=== PATIENT | female | born 1950 | race American Indian/Alaskan Native ===

== ENCOUNTER 2017-11-11 18:16 | Emergency (ER) | payer MEDICARE, OTHER ==
[2017-11-11] MEDS ORDERED: Sodium Chloride 0.9% 10 ML Syringe FLUSH PRN (18:38)
[2017-11-11] MEDS ORDERED: Nitroglycerin 0.4 MG Tab.SL SL PRN (18:39)
[2017-11-11] MEDS ORDERED: Nitroglycerin 0.4 MG Tab.SL SL ONE (19:03)
[2017-11-11 19:04] VITALS: BP 163/70
[2017-11-11] MEDS ORDERED: Sodium Chloride 0.9% 1,000 ML IV ONE (19:05)
--- NOTE | 2017-11-11 19:18 | EDM.PDOC ---
ED HPI GENERAL MEDICAL PROBLEM - General Chief Complaint: Cardiovascular Problem Stated Complaint: [id number] PAIN IN LT ARM AND JAW Time Seen by Provider: 11/11/17 19:00 Source of Information: Reports: Patient History Limitations: Reports: No Limitations - History of Present Illness INITIAL COMMENTS - FREE TEXT/NARRATIVE: ED with c/o left arm and jaw pain since last rosales. Never completely goes away but improves with rest. Hx bypass in 1999, then 2 stents few years later. Diabetic. O2 at hs, Hx carotid surgery on left. Pain 8/10 on arrival decreased to 4/10 with one nitro, 3/10 with 2nd. Notes sweaty when pain worsens. No nausea. No pain with prior cardiac events. Hx low Hgb, usually in 9 range. Left Face Pain Score (Numeric/FACES): 8 - Related Data Allergies Allergy/AdvReac Type Severity Reaction Status Date / Time aspirin Allergy Stomach Verified 01/07/15 23:29 Upset Home Meds: Home Meds . [Unable to Verify Home Med List] 01/02/15 [History] Past Medical History Cardiovascular History: Reports: Bypass, High Cholesterol, Hypertension, [place] Other Cardiovascular History: 1999; 2 stents and 2 balloon Respiratory History: Reports: Sleep Apnea Other Respiratory History: breathes too shallow at night, is on a CPAP Gastrointestinal History: Reports: GERD Other OB/BYN History: benign mass on left ovary Endocrine/Metabolic History: Reports: Diabetes, Type II - Past Surgical History Other HEENT Surgeries/Procedures: shunt to right eye Social & Family History - Tobacco Use Smoking Status *Q: Former Smoker Used Tobacco, but Quit: No - Caffeine Use Caffeine Use: Reports: Coffee, Soda, Tea - Recreational Drug Use Recreational Drug Use: No ED ROS GENERAL - Review of Systems Review Of Systems: See Below Constitutional: Reports: No Symptoms HEENT: Reports: No Symptoms Respiratory: Reports: No Symptoms Cardiovascular: Reports: Dyspnea on Exertion, Other (left arm and jaw pain, worse with exertion, improves with rest but does not completely resolve). Denies: Chest Pain GI/Abdominal: Reports: No Symptoms Musculoskeletal: Reports: No Symptoms Skin: Reports: No Symptoms Neurological: Reports: No Symptoms Psychiatric: Reports: No Symptoms ED EXAM, GENERAL - Physical Exam Exam: See Below Exam Limited By: No Limitations General Appearance: Alert, No Apparent Distress Eye Exam: Bilateral Eye: EOMI Ears: Normal External Exam Nose: Normal Inspection Throat/Mouth: Normal Inspection Head: Atraumatic Neck: Normal Inspection Respiratory/Chest: No Respiratory Distress Cardiovascular: Normal Peripheral Pulses, Regular Rate, Rhythm, No JVD, No Murmur GI/Abdominal: Normal Bowel Sounds, Soft Extremities: Normal Inspection, Normal Range of Motion Neurological: Oriented, Normal Cognition Psychiatric: Normal Affect, Normal Mood Skin Exam: Warm, Dry, Intact, Normal Color EKG INTERPRETATION Rhythm: NSR Comparison: Other: (diffuse ST depression) Course - Vital Signs Last Recorded V/S: Last Vital Signs Temp 97.8 F 11/11/17 18:49 Pulse 93 11/11/17 18:49 Resp 19 11/11/17 18:49 BP 163/70 H 11/11/17 19:04 Pulse Ox 95 11/11/17 18:49 - Orders/Labs/Meds Orders: Active Orders 24 hr Category Date Time Status EKG 12 Lead [EKG Documentation Completion] [] ROUTINE Care 11/11/17 19:37 Active EKG 12 Lead [EKG Documentation Completion] [] STAT Care 11/11/17 18:38 Active Peripheral IV Care [RC] . DIRECTED Care 11/11/17 18:38 Active Hemoccult, Stool [OCCULT BLOOD DIAGNOSTIC] [OP] Stat Lab 11/11/17 19:19 Ordered Peripheral IV Insertion Adult [OM.PC] Stat Oth 11/11/17 18:38 Ordered Labs: Laboratory Tests 11/11/17 11/11/17 11/11/17 Range/Units 18:40 18:40 18:40 WBC 16.3 H (5.0-10.0) 10^3/uL RBC 3.23 L (4.2-5.4) 10^6/uL Hgb 8.7 L (12.0-16.0) g/dL Hct 27.5 L (37.0-47.0) % MCV 85.1 (80-100) fL MCH 26.9 L (27.0-34.0) pg MCHC 31.6 L (33.0-35.0) g/dL Plt Count 397 D (150-450) 10^3/uL Neut % (Auto) 80.1 H (42.2-75.2) % Lymph % (Auto) 11.9 L (20.5-50.1) % [place] % (Auto) 6.8 (2-8) % Eos % (Auto) 1.0 (1.0-3.0) % Baso % (Auto) 0.2 (0.0-1.0) % PT 10.1 (9.0-12.0) SEC INR 1.0 (0.9-1.2) APTT 28.0 (22.0-34.0) SEC Sodium 130 L (135-145) mmol/L Potassium 3.6 (3.6-5.0) mmol/L Chloride 96 L (101-111) mmol/L Carbon Dioxide 24.0 (21.0-31.0) mmol/L Anion Gap 13.6 BUN 34 H (7-18) mg/dL Creatinine 2.1 H (0.6-1.3) mg/dL Est Cr Clr Drug Dosing 22.09 mL/min Estimated GFR (MDRD) 24 BUN/Creatinine Ratio 16.19 Glucose 321 H (74-105) mg/dL Calcium 8.9 (8.4-10.2) mg/dl Total Bilirubin 0.4 (0.2-1.0) mg/dL AST 22 (10-42) IU/L ALT 16 (10-60) IU/L Alkaline Phosphatase 150 H (42-121) IU/L Troponin I 0.05 H* (0.00-0.02) ng/ml Total Protein 9.0 H (6.7-8.2) g/dl Albumin 3.2 (3.2-5.5) g/dl Globulin 5.8 Albumin/Globulin Ratio 0.55 Amylase 71 (28-100) U/L Lipase 20 L (22-51) U/L Urine Color (YELLOW) Urine Appearance (CLEAR) Urine pH (5.0-9.0) Ur Specific [place] (1.005-1.030) Urine Protein (NEGATIVE) Urine Glucose (UA) (NEGATIVE) Urine Ketones (NEGATIVE) Urine Occult Blood (NEGATIVE) Urine Nitrite (NEGATIVE) Urine Bilirubin (NEGATIVE) Urine Urobilinogen (0.2-1.0) mg/dL Ur Leukocyte Esterase (NEGATIVE) Urine RBC /HPF Urine WBC (0-5/HPF) /HPF Ur Epithelial Cells /HPF Urine Bacteria (0-FEW/HPF) /HPF Blood Type Gel Antibody Screen 11/11/17 11/11/17 Range/Units 18:40 19:15 WBC (5.0-10.0) 10^3/uL RBC (4.2-5.4) 10^6/uL Hgb (12.0-16.0) g/dL Hct (37.0-47.0) % MCV (80-100) fL MCH (27.0-34.0) pg MCHC (33.0-35.0) g/dL Plt Count (150-450) 10^3/uL Neut % (Auto) (42.2-75.2) % Lymph % (Auto) (20.5-50.1) % [place] % (Auto) (2-8) % Eos % (Auto) (1.0-3.0) % Baso % (Auto) (0.0-1.0) % PT (9.0-12.0) SEC INR (0.9-1.2) APTT (22.0-34.0) SEC Sodium (135-145) mmol/L Potassium (3.6-5.0) mmol/L Chloride (101-111) mmol/L Carbon Dioxide (21.0-31.0) mmol/L Anion Gap BUN (7-18) mg/dL Creatinine (0.6-1.3) mg/dL Est Cr Clr Drug Dosing mL/min Estimated GFR (MDRD) BUN/Creatinine Ratio Glucose (74-105) mg/dL Calcium (8.4-10.2) mg/dl Total Bilirubin (0.2-1.0) mg/dL AST (10-42) IU/L ALT (10-60) IU/L Alkaline Phosphatase (42-121) IU/L Troponin I (0.00-0.02) ng/ml Total Protein (6.7-8.2) g/dl Albumin (3.2-5.5) g/dl Globulin Albumin/Globulin Ratio Amylase (28-100) U/L Lipase (22-51) U/L Urine Color Yellow (YELLOW) Urine Appearance Clear (CLEAR) Urine pH 8.5 (5.0-9.0) Ur Specific [place] 1.015 (1.005-1.030) Urine Protein >=300 H (NEGATIVE) Urine Glucose (UA) 100 H (NEGATIVE) Urine Ketones Negative (NEGATIVE) Urine Occult Blood Negative (NEGATIVE) Urine Nitrite Negative (NEGATIVE) Urine Bilirubin Negative (NEGATIVE) Urine Urobilinogen 0.2 (0.2-1.0) mg/dL Ur Leukocyte Esterase Trace H (NEGATIVE) Urine RBC 0-5 /HPF Urine WBC 5-10 H (0-5/HPF) /HPF Ur Epithelial Cells Occasional /HPF Urine Bacteria Few (0-FEW/HPF) /HPF Blood Type O POSITIVE Gel Antibody Screen Negative Meds: Medications Discontinued Medications Generic Name Dose Route Start Last Admin Trade Name Freq PRN Reason Stop Dose Admin Heparin Sodium (Porcine) 5,000 units 11/11/17 19:22 11/11/17 19:32 Heparin Sodium IVPUSH 11/11/17 19:23 5,000 units ONETIME ONE Administration Sodium Chloride 1,000 mls @ 25 mls/hr 11/11/17 19:05 11/11/17 19:11 Normal Saline IV 11/13/17 11:04 25 mls/hr .BOLUS ONE Administration Nitroglycerin/Dextrose 25 mg in 250 mls @ 3 mls/hr 11/11/17 19:30 11/11/17 19 :46 Nitroglycerin 25 Mg/D5w 250 Ml IV 5 mcg/min TITRATE ALBERT 3 mls/hr Administration Protocol 5 MCG/MIN Heparin Sodium/Sodium Chloride 25,000 units in 500 mls @ 18.724 mls/hr 19:30 11/11/17 19:47 Heparin 25,000 Units In 1/2 Ns 500 Ml IV 12 units/kg/hr TITRATE ALBERT 18.724 mls/hr Administration Protocol 12 UNITS/KG/HR Insulin Human Regular 5 unit 11/11/17 19:43 11/11/17 19:49 Humulin R IV 11/11/17 19:44 5 units ONETIME ONE Administration Morphine Sulfate 2 mg 11/11/17 19:52 11/11/17 19:56 Morphine IVPUSH 11/11/17 19:53 2 mg ONETIME ONE Administration Nitroglycerin 0.4 mg 11/11/17 18:39 11/11/17 18:46 Nitrostat SL 0.4 mg Q5M PRN Administration Chest Pain Nitroglycerin 0.4 mg 11/11/17 19:03 11/11/17 19:04 Nitrostat SL 05/10/18 19:04 0.4 mg ONETIME ONE Administration Ondansetron HCl 4 mg 11/11/17 19:52 11/11/17 19:56 Zofran Odt PO 11/11/17 19:53 4 mg ONETIME ONE Administration Sodium Chloride 10 ml 11/11/17 18:38 11/11/17 18:47 Saline Flush FLUSH 10 ml ASDIRECTED PRN Administration Keep Vein Open - Re-Assessments/Exams Free Text/Narrative Re-Assessment/Exam: 11/11/17 19:53 Dr Vásquez accepting of patient. Tx via [facility]. IV nitro for titration and Heparin drip enroute Arm and jaw pain improved Departure - Departure Time of Disposition: 20:10 Disposition: DC/Tfer to Acute Hospital 02 Reason for Transfer *Q: Other Condition: Undetermined Clinical Impression: Myocardial infarction acute Qualifiers: Myocardial infarction type: non-ST elevation myocardial infarction Qualified Code(s): I21.4 - Non-ST elevation (NSTEMI) myocardial infarction Diabetes Qualifiers: Diabetes mellitus type: type 2 Diabetes mellitus senior care insulin use: unspecified senior care insulin use status Diabetes mellitus complication status: with unspecified complications Qualified Code(s): E11.8 - Type 2 diabetes mellitus with unspecified complications Referrals: Edgardo Carreon MD [Primary Care Provider] - Forms: ED Department Discharge - My Orders Last 24 Hours: My Active Orders 11/11/17 19:19 Hemoccult, Stool [OCCULT BLOOD DIAGNOSTIC] [OP] Stat 11/11/17 19:37 EKG 12 Lead [EKG Documentation Completion] [RC] ROUTINE - Assessment/Plan Last 24 Hours: My Active Orders 11/11/17 19:19 Hemoccult, Stool [OCCULT BLOOD DIAGNOSTIC] [OP] Stat 11/11/17 19:37 EKG 12 Lead [EKG Documentation Completion] [RC] ROUTINE
[2017-11-11] MEDS ORDERED: Heparin Sodium 5,000 Units/ML Vial IVPUSH ONE (19:22)
[2017-11-11] MEDS ORDERED: Nitroglycerin/D5W 25 MG/250 ML BOTTLE IV SCH (19:30)
[2017-11-11] MEDS ORDERED: Heparin Sodium/0.45% NaCl 25,000 UNITS/500 ML BAG IV SCH (19:30)
[2017-11-11] MEDS ORDERED: Insulin Regular, Human 100 Units/ML 3 ML Vial IV ONE (19:43)
[2017-11-11] MEDS ORDERED: Morphine 2 MG/ML Syringe IVPUSH ONE (19:52)
[2017-11-11] MEDS ORDERED: Ondansetron 4 MG Tab.DIS PO ONE (19:52)
--- NOTE | 2017-11-13 12:59 | EKG ---
11/11/2017 - CELI DAWKINS - FINDINGS: A 12-lead EKG shows normal sinus rhythm with no significant ST elevation or ST depression, but nonspecific ST-T wave changes noted on leads V2, V3, V4, and V5, suggestive of possible ST depression. Recommend repeating the 12-lead EKG. [facility] /[id number]
--- NOTE | 2017-11-13 13:14 | EKG ---
11/11/2017 - CELI DAWKINS - TIME: 19:38:14. FINDINGS: A 12-lead EKG shows normal sinus rhythm with no significant ST elevation. Mild ST depression noted on lateral leads. Recommend followup with cardiac enzymes and possible cardiology evaluation. [facility] /[id number]
== END 2017-11-11 20:12 ==
LOC: DL.ED 18:16
DX: I21.4 Non-ST elevation (NSTEMI) myocardial infarction (principal); E11.9 Type 2 diabetes mellitus without complications; I25.2 Old myocardial infarction; I10 Essential (primary) hypertension; Z88.8 Allergy status to other drugs, medicaments and biological substances; Z87.891 Personal history of nicotine dependence
CPT/HCPCS: 36415; 71045; 80053; 81001; 82150; 82272; 83690; 84484; 85025; 85610; 85730; 86850; 86900; 86901; 93005; 93010; 96361; 96365; 96375; 96376; 99285; A9270; J1644; J1815; J2270; J7030; J7050

== ENCOUNTER 2018-10-12 16:52 | Emergency (ER) | payer MEDICARE, OTHER ==
[2018-10-12] MEDS ORDERED: Labetalol 100 MG/20 ML MDV ONE (17:26)
[2018-10-12] MEDS: Sodium Chloride 0.9% 10 ML Syringe FLUSH PRN ×2 (17:27→17:29)
[2018-10-12] MEDS ORDERED: Labetalol 100 MG/20 ML MDV IVPUSH ONE ×2 (18:08)
[2018-10-12 18:09] LABS: ANION GAP 16.7; CHLORIDE,CL 102 mmol/L (101-111); SODIUM,NA 133 mmol/L (135-145)
[2018-10-12] MEDS ORDERED: hydrALAZINE 20 MG/ML SDV IVPUSH ONE (18:12)
[2018-10-12] MEDS ORDERED: hydrALAZINE 20 MG/ML SDV ONE (18:14)
[2018-10-12] MEDS ORDERED: niCARdipine HCl 25 MG in Sodium Chloride 0.9% 240 ML IV SCH (18:22)
[2018-10-12 18:40] VITALS: BP 165/67
--- NOTE | 2018-10-12 19:22 | EDM.PDOC ---
ED HPI GENERAL MEDICAL PROBLEM - General Chief Complaint: Neurological Problem Stated Complaint: AMBULANCE Time Seen by Provider: 10/12/18 16:52 Source of Information: Reports: Patient, EMS, Family History Limitations: Reports: Altered Mental Status - History of Present Illness INITIAL COMMENTS - FREE TEXT/NARRATIVE: the patient comes to the emergency department today by ambulance with concerns of confusion. According to the at approximately 1410 today the patient had a rather sudden onset of what he relates his confusion. She could not speak like she normally would. She was not acting normal.She did not want to come to the emergency department. Despite this the called the ambulance. Per EMS report the blood sugar was in the 160s. They did not see any focal weakness of any extremity. She is very slow to answer questions. She is word searching. According to the no recent falls traumas or head injury. The patient does answer questions on arrival but very slowly and appropriately. She complains of a headacheand some change in her vision. Rest of the review of systems is unobtainable. - Related Data Allergies Allergy/AdvReac Type Severity Reaction Status Date / Time aspirin AdvReac Stomach Verified 10/12/18 17:06 Upset Home Meds: Home Meds Albuterol Sulfate [Albuterol Sulfate Hfa] 18 gm IH Q6HR PRN 10/12/18 [History] Aspirin [Halfprin] 81 mg PO DAILY 10/12/18 [History] Bimatoprost [LUMIGAN 0.01% Ophth Soln] 2.5 ml .XX QPM 10/12/18 [History] Brimonidine [Alphagan 0.2% Ophth Soln] 5 ml .XX TID 10/12/18 [History] Bumetanide 2 mg PO DAILY 10/12/18 [History] Cholecalciferol (Vitamin D3) [Vitamin D3] 1,000 unit PO DAILY 10/12/18 [History] Clopidogrel [Plavix] 75 mg PO DAILY 10/12/18 [History] Cyanocobalamin (Vitamin B-12) [Cyanocobalamin Injection] 1 ml SQ ASDIRECTED 04/22 [History] Dorzolamide/Timolol/Pf [Cosopt Pf Eye Drops] 1 each OP BID 10/12/18 [History] Famotidine [Pepcid] 20 mg PO BID 10/12/18 [History] Insulin Aspart [NovoLOG] 20 unit SQ TID 10/12/18 [History] Insulin Detemir [Levemir] 22 unit SUBCUT ACBREAKFAST 10/12/18 [History] Isosorbide Mononitrate [Isosorbide Mononitrate ER] 120 mg PO DAILY 10/12/18 [ History] Latanoprost/Pf [Latanoprost 0.005% Eye Drop] 7.5 ml OP DAILY 10/12/18 [History] Multivitamin with Minerals [Multiple Vitamin] 1 tab PO DAILY 10/12/18 [History] Nitroglycerin 0.4 mg SL ASDIRECTED 10/12/18 [History] Saxagliptin HCl [Onglyza] 2.5 mg PO ASDIRECTED 10/12/18 [History] Sodium Bicarbonate 650 mg PO BID PRN 10/12/18 [History] atorvaSTATin [Lipitor] 40 mg PO BEDTIME 10/12/18 [History] Past Medical History Cardiovascular History: Reports: Bypass, High Cholesterol, Hypertension, NM Other Cardiovascular History: 1999; 2 stents and 2 balloon Respiratory History: Reports: Sleep Apnea Other Respiratory History: breathes too shallow at night, is on a CPAP Gastrointestinal History: Reports: GERD Genitourinary History: Reports: None TUNNELLER History: Reports: Other (See Below) Other TUNNELLER History: benign mass on left ovary Musculoskeletal History: Reports: None Neurological History: Reports: None Psychiatric History: Reports: None Endocrine/Metabolic History: Reports: Diabetes, Type II Hematologic History: Reports: None Immunologic History: Reports: None Dermatologic History: Reports: None - Infectious Disease History Infectious Disease History: Reports: Chicken Pox - Past Surgical History Other HEENT Surgeries/Procedures: shunt to right eye Social & Family History - Tobacco Use Smoking Status *Q: Never Smoker Second Hand Smoke Exposure: No - Caffeine Use Caffeine Use: Reports: Coffee - Recreational Drug Use Recreational Drug Use: No ED ROS GENERAL - Review of Systems Review Of Systems: ROS reveals no pertinent complaints other than HPI. - Physical Exam Exam: See Below Text/Narrative:: the patient is alert moving spontaneously and to command. When she is asked questions she answers questions appropriately but it takes a very long time and she has word searching. Once she finally does get the answer it is appropriate. Exam Limited By: Altered Mental Status General Appearance: Alert, WD/WN Eye Exam: Bilateral Eye: EOMI, PERRL, Vision Changes (she does have some loss of the right visual field.) Ears: Normal External Exam, Hearing Grossly Normal Nose: Normal Inspection, Normal Mucosa Throat/Mouth: Normal Inspection, Normal Lips, Normal Teeth, Normal Oropharynx, Normal Voice, No Airway Compromise Head Exam: Atraumatic, Normocephalic Neck: Normal Inspection, Supple, Non-Tender, Full Range of Motion Respiratory/Chest: No Respiratory Distress, Lungs Clear, Normal Breath Sounds, No Accessory Muscle Use, Chest Non-Tender Cardiovascular: Normal Peripheral Pulses, Regular Rate, Rhythm, No Edema GI/Abdominal: Normal Bowel Sounds, Soft, Non-Tender Neuro Exam (Abbreviated): Alert, Oriented, CN II-XII Intact, Normal Cognition, Normal Reflexes, Slow to Respond. No: No Motor/Sensory Deficits (she answers questions very slowly and his word searching. Takes multiple attempts to get her to move her tongue side to side. She has some ataxia noted with her left arm. No ataxia of the lower right upper extremity.), Memory Loss Recent Events DTR: 2+: Patella (R), Patella (L), Achilles (R), Achilles (L) Back Exam: Normal Inspection, Full Range of Motion Extremities: Normal Inspection (other than the ataxia.), Normal Range of Motion , Non-Tender Psychiatric: Flat Affect Skin Exam: Warm, Dry, Intact, Pallor EKG INTERPRETATION EKG Date: 10/12/18 Time: 17:10 Rhythm: NSR Rate (Beats/Min): 80 [place]: Normal P-Wave: Present QRS: Normal ST-T: Depressed (chronic) QT: Normal Comparison: No Change Course - Vital Signs Last Recorded V/S: Last Vital Signs Temp 36.9 C 10/12/18 18:05 Pulse 70 10/12/18 18:30 Resp 16 10/12/18 18:30 BP 165/67 H 10/12/18 18:30 Pulse Ox 98 10/12/18 18:30 - Orders/Labs/Meds Orders: Active Orders 24 hr Category Date Time Status EKG 12 Lead [EKG Documentation Completion] [RC] URGENT Care 10/12/18 17:06 Active Peripheral IV Care [RC] . DIRECTED Care 10/12/18 17:07 Active Head wo Cont [CT] Stat Exams 10/12/18 17:06 Taken Peripheral IV Insertion Adult [OM.PC] Stat Oth 10/12/18 17:06 Ordered Labs: Laboratory Tests 10/12/18 10/12/18 10/12/18 Range/Units 17:11 17:11 17:11 WBC 15.0 H (5.0-10.0) 10^3/uL RBC 3.98 L (4.2-5.4) 10^6/uL Hgb 11.8 L D (12.0-16.0) g/dL Hct 35.3 L (37.0-47.0) % MCV 88.7 (80-100) fL MCH 29.6 (27.0-34.0) pg MCHC 33.4 (33.0-35.0) g/dL Plt Count 298 D (150-450) 10^3/uL Neut % (Auto) 79.7 H (42.2-75.2) % Lymph % (Auto) 10.4 L (20.5-50.1) % Real % (Auto) 8.3 H (2-8) % Eos % (Auto) 1.3 (1.0-3.0) % Baso % (Auto) 0.3 (0.0-1.0) % PT (9.0-12.0) SEC INR (0.9-1.2) Sodium 133 L (135-145) mmol/L Potassium 4.7 (3.6-5.0) mmol/L Chloride 102 (101-111) mmol/L Carbon Dioxide 19.0 L (21.0-31.0) mmol/L Anion Gap 16.7 BUN 28 H (7-18) mg/dL Creatinine 1.5 H (0.6-1.3) mg/dL Est Cr Clr Drug Dosing 30.52 mL/min Estimated GFR (MDRD) 35 BUN/Creatinine Ratio 18.66 Glucose 170 H (74-105) mg/dL Lactic Acid 0.6 (0.5-2.2) mmol/L Calcium 9.0 (8.4-10.2) mg/dl Total Bilirubin 1.5 H (0.2-1.0) mg/dL AST 37 (10-42) IU/L ALT 14 (10-60) IU/L Alkaline Phosphatase 152 H (42-121) IU/L Troponin I 0.09 H* (0.00-0.02) ng/ml Total Protein 8.6 H (6.7-8.2) g/dl Albumin 3.0 L (3.2-5.5) g/dl Globulin 5.6 Albumin/Globulin Ratio 0.54 Urine Color (YELLOW) Urine Appearance (CLEAR) Urine pH (5.0-9.0) Ur Specific [place] (1.005-1.030) Urine Protein (NEGATIVE) Urine Glucose (UA) (NEGATIVE) Urine Ketones (NEGATIVE) Urine Occult Blood (NEGATIVE) Urine Nitrite (NEGATIVE) Urine Bilirubin (NEGATIVE) Urine Urobilinogen (0.2-1.0) mg/dL Ur Leukocyte Esterase (NEGATIVE) Urine RBC /HPF Urine WBC (0-5/HPF) /HPF Ur Epithelial Cells /HPF Amorphous Sediment (0/HPF) /HPF Urine Bacteria (0-FEW/HPF) /HPF Urine Mucus /LPF Urine Opiates Screen (NEGATIVE) Ur Oxycodone Screen (NEGATIVE) Urine Methadone Screen (NEGATIVE) Ur Barbiturates Screen (NEGATIVE) U Tricyclic Antidepress (NEGATIVE) Ur Phencyclidine Scrn (NEGATIVE) Ur Amphetamine Screen (NEGATIVE) U Methamphetamines Scrn (NEGATIVE) Urine MDMA Screen (NEGATIVE) U Benzodiazepines Scrn (NEGATIVE) Urine Cocaine Screen (NEGATIVE) U Marijuana (THC) Screen (NEGATIVE) Ethyl Alcohol < 5 mg/dL 10/12/18 10/12/18 10/12/18 Range/Units 17:11 17:41 17:41 WBC (5.0-10.0) 10^3/uL RBC (4.2-5.4) 10^6/uL Hgb (12.0-16.0) g/dL Hct (37.0-47.0) % MCV (80-100) fL MCH (27.0-34.0) pg MCHC (33.0-35.0) g/dL Plt Count (150-450) 10^3/uL Neut % (Auto) (42.2-75.2) % Lymph % (Auto) (20.5-50.1) % Real % (Auto) (2-8) % Eos % (Auto) (1.0-3.0) % Baso % (Auto) (0.0-1.0) % PT 10.7 (9.0-12.0) SEC INR 1.1 (0.9-1.2) Sodium (135-145) mmol/L Potassium (3.6-5.0) mmol/L Chloride (101-111) mmol/L Carbon Dioxide (21.0-31.0) mmol/L Anion Gap BUN (7-18) mg/dL Creatinine (0.6-1.3) mg/dL Est Cr Clr Drug Dosing mL/min Estimated GFR (MDRD) BUN/Creatinine Ratio Glucose (74-105) mg/dL Lactic Acid (0.5-2.2) mmol/L Calcium (8.4-10.2) mg/dl Total Bilirubin (0.2-1.0) mg/dL AST (10-42) IU/L ALT (10-60) IU/L Alkaline Phosphatase (42-121) IU/L Troponin I (0.00-0.02) ng/ml Total Protein (6.7-8.2) g/dl Albumin (3.2-5.5) g/dl Globulin Albumin/Globulin Ratio Urine Color Yellow (YELLOW) Urine Appearance Clear (CLEAR) Urine pH 6.5 (5.0-9.0) Ur Specific [place] 1.015 (1.005-1.030) Urine Protein >=300 H (NEGATIVE) Urine Glucose (UA) Negative (NEGATIVE) Urine Ketones Negative (NEGATIVE) Urine Occult Blood Small H (NEGATIVE) Urine Nitrite Negative (NEGATIVE) Urine Bilirubin Negative (NEGATIVE) Urine Urobilinogen 0.2 (0.2-1.0) mg/dL Ur Leukocyte Esterase Negative (NEGATIVE) Urine RBC 5-10 H /HPF Urine WBC 0-5 (0-5/HPF) /HPF Ur Epithelial Cells Rare /HPF Amorphous Sediment Not seen (0/HPF) /HPF Urine Bacteria Not seen (0-FEW/HPF) /HPF Urine Mucus Not seen /LPF Urine Opiates Screen Negative (NEGATIVE) Ur Oxycodone Screen Negative (NEGATIVE) Urine Methadone Screen Negative (NEGATIVE) Ur Barbiturates Screen Negative (NEGATIVE) U Tricyclic Antidepress Negative (NEGATIVE) Ur Phencyclidine Scrn Negative (NEGATIVE) Ur Amphetamine Screen Negative (NEGATIVE) U Methamphetamines Scrn Negative (NEGATIVE) Urine MDMA Screen Negative (NEGATIVE) U Benzodiazepines Scrn Negative (NEGATIVE) Urine Cocaine Screen Negative (NEGATIVE) U Marijuana (THC) Screen Negative (NEGATIVE) Ethyl Alcohol mg/dL Meds: Medications Discontinued Medications Generic Name Dose Route Start Last Admin Trade Name Monroe PRN Reason Stop Dose Admin Alteplase, Recombinant 58 mg 10/12/18 18:15 10/12/18 18:15 Activase IVPUSH 58 mg .BOLUS ALBERT Administration Hydralazine HCl 10 mg 10/12/18 18:12 10/12/18 18:18 Apresoline IVPUSH 10/12/18 18:13 10 mg ONETIME ONE Administration Hydralazine HCl Confirm 10/12/18 18:14 10/12/18 18:20 Apresoline Administered 10/12/18 18:15 Not Given Dose 20 mg .ROUTE .STK-MED ONE Nicardipine HCl 25 mg/ Sodium 250 mls @ 50 mls/hr 10/12/18 18:22 10/12/18 18: 28 Chloride IV 5 mg/hr TITRATE ALBERT 50 mls/hr Administration 5 MG/HR Labetalol HCl Confirm 10/12/18 17:26 10/12/18 17:31 Normodyne Administered 10/12/18 17:27 20 mg Dose Administration 100 mg .ROUTE .STK-MED ONE Labetalol HCl 20 mg 10/12/18 18:08 10/12/18 18:06 Normodyne IVPUSH 10/12/18 18:09 20 mg ONETIME ONE Administration Protocol Labetalol HCl 20 mg 10/12/18 18:08 10/12/18 18:10 Normodyne IVPUSH 10/12/18 18:09 Not Given ONETIME ONE Protocol Sodium Chloride 10 ml 10/12/18 17:07 10/12/18 17:29 Saline Flush FLUSH 10 ml ASDIRECTED PRN Administration Keep Vein Open - Re-Assessments/Exams Free Text/Narrative Re-Assessment/Exam: 10/12/18 19:33 stroke code was activated on the patient's arrival with the concerning physical assessment of the word searching ataxia as well as the visual field disturbance. CT of the head per radiology shows subtle areas of decreased attenuation noted within the left temporoparietal lobe in the left MCA distribution. Findings may be consistent with early CVA. No hemorrhage mass effect or midline shift. patient was quite hypertensive and was given labetalol with improvement of her hypertension. I urgently talked to Dr. Schumacher at the stroke center in [place]. HPI ER COURSE findings and concerns were relayed to her. She did have the CT scan available for viewing. Patient's NIH score is about 3-4. the neurologist from [place] feels that TPA is indicated at this time. the screening for the inclusion exclusion of TPA was completed. There is no contraindications at this time for TPA. Her platelet level is normal and her INR is 1.1 and she is not on Coumadin. She is on aspirin and Plavix which her neurologist was aware of. A very gwendolyn discussion was held with the patient her and family members about the risk and benefits of TPA in this what appears to be an evolving CVA. The wrist to include from intercranial hemorrhageand benefits of arresting the evolving CVA and all the variables in between were clearly explained to the patient and . They verbally consented to the TPA. Her blood pressurewas below 180 systolically in the 110 diastolically at the initiation of the TPA bolus. She had received a couple doses of labetalol and I started her on nicardipine as her blood pressure was hanging right at the edgard for not administering TPA.Her neuro status was monitored closely. her blood pressure remained under the 180s systolically and 110 diastolically. After the bolus was given and the infusion was started there is a quite noticeable change in the patients affect. She is much more alert and interactive were before she was very labile and not interactive. Her skin is pink warm and dry. She is smiling.She is speaking normal and the word searching has resolved.She still does have some right visual field loss. Her headache has resolved.Continue the nicardipine drip. The stroke Center in [place] was updated. She was transferred emerg[facility] to [facility] in [place]. Departure - Departure Time of Disposition: 17:40 Disposition: DC/Tfer to Acute Hospital 02 Clinical Impression: Hypertensive crisis CVA (cerebral vascular accident) Qualifiers: CVA mechanism: unspecified Qualified Code(s): I63.9 - Cerebral infarction, unspecified - Discharge Information Referrals: PCP,None [Primary Care Provider] - Forms: ED Department Discharge Critical Care Note - Critical Care Note Total Time (mins): 75 (75 minutes of critical care time in direct patient assessment consultation with radiology referral providers receiving providers and bedside patient care management family counselingand risk stratification for this patient with an evolving CVA.) - My Orders Last 24 Hours: My Active Orders 10/12/18 17:06 EKG 12 Lead [EKG Documentation Completion] [RC] URGENT Head wo Cont [CT] Stat Peripheral IV Insertion Adult [OM.PC] Stat 10/12/18 17:07 Peripheral IV Care [RC] . DIRECTED - Assessment/Plan Last 24 Hours: My Active Orders 10/12/18 17:06 EKG 12 Lead [EKG Documentation Completion] [RC] URGENT Head wo Cont [CT] Stat Peripheral IV Insertion Adult [OM.PC] Stat 10/12/18 17:07 Peripheral IV Care [RC] . DIRECTED Assessment:: CVA Hypertensive crisis. Plan: Transfer by [facility] to [facility] [place] by [facility] with NIcardipine infusing.
== END 2018-10-12 19:06 ==
LOC: DL.ED 16:52
DX: I63.9 Cerebral infarction, unspecified (principal); I16.9 Hypertensive crisis, unspecified; I10 Essential (primary) hypertension; I25.2 Old myocardial infarction; E11.9 Type 2 diabetes mellitus without complications; Z88.8 Allergy status to other drugs, medicaments and biological substances; Z79.82 Long term (current) use of aspirin; Z79.899 Other long term (current) drug therapy
CPT/HCPCS: 36415; 51702; 70450; 80053; 80305; 81001; 83605; 84484; 85025; 85610; 93005; 96365; 96375; 96376; 99285; G0480; J0360; J2997; J3490; J7050

== ENCOUNTER 2018-11-24 08:33 | Emergency (ER) | payer MEDICARE, OTHER ==
[2018-11-24] MEDS ORDERED: Aspirin 81 MG Tab.Chew PO ONE (08:46)
[2018-11-24 08:47] VITALS: PULSE 81
--- NOTE | 2018-11-24 08:58 | EDM.PDOC ---
ED HPI GENERAL MEDICAL PROBLEM - General Chief Complaint: Chest Pain Stated Complaint: CHEST PAIN Time Seen by Provider: 11/24/18 08:53 Source of Information: Reports: Patient History Limitations: Reports: No Limitations - History of Present Illness INITIAL COMMENTS - FREE TEXT/NARRATIVE: This 68 yo female patient reports to the ED with sub-sternal chest pain. The patient reports she has been having intermittent episodes of similar chest pain throughout the past week. The patient reports she thought she was having acid reflux, but her symptoms did not resolve with soda or Tums. The patient reports she did take Nitro (1 last night and 3 this morning) with some short lasted symptom relief. The patient has had similar symptoms in the past and has had stents placed and a round about placed. The patient did have a visit with cardiology yesterday and was advised to have an angiogram in the near future. The patient reports she did not take any other medications today (other than nitro). Onset Date: 11/23/18 Duration: Intermittent Location: Reports: Neck, Chest Quality: Reports: Ache, Dull Severity: Moderate Improves with: Reports: Medication (Nitro for very short episodes) Worsens with: Reports: None Context: Reports: Other Associated Symptoms: Reports: Chest Pain - Related Data Allergies Allergy/AdvReac Type Severity Reaction Status Date / Time aspirin AdvReac Stomach Verified 10/12/18 17:06 Upset Home Meds: Home Meds Albuterol Sulfate [Albuterol Sulfate Hfa] 18 gm IH Q6HR PRN 10/12/18 [History] Aspirin [Halfprin] 81 mg PO DAILY 10/12/18 [History] Bimatoprost [LUMIGAN 0.01% Ophth Soln] 2.5 ml .XX QPM 10/12/18 [History] Brimonidine [Alphagan 0.2% Ophth Soln] 5 ml .XX TID 10/12/18 [History] Bumetanide 2 mg PO DAILY 10/12/18 [History] Cholecalciferol (Vitamin D3) [Vitamin D3] 1,000 unit PO DAILY 10/12/18 [History] Clopidogrel [Plavix] 75 mg PO DAILY 10/12/18 [History] Cyanocobalamin (Vitamin B-12) [Cyanocobalamin Injection] 1 ml SQ ASDIRECTED 04/22 [History] Dorzolamide/Timolol/Pf [Cosopt Pf Eye Drops] 1 each OP BID 10/12/18 [History] Famotidine [Pepcid] 20 mg PO BID 10/12/18 [History] Insulin Aspart [NovoLOG] 20 unit SQ TID 10/12/18 [History] Insulin Detemir [Levemir] 22 unit SUBCUT ACBREAKFAST 10/12/18 [History] Isosorbide Mononitrate [Isosorbide Mononitrate ER] 120 mg PO DAILY 10/12/18 [ History] Latanoprost/Pf [Latanoprost 0.005% Eye Drop] 7.5 ml OP DAILY 10/12/18 [History] Multivitamin with Minerals [Multiple Vitamin] 1 tab PO DAILY 10/12/18 [History] Nitroglycerin 0.4 mg SL ASDIRECTED 10/12/18 [History] Saxagliptin HCl [Onglyza] 2.5 mg PO ASDIRECTED 10/12/18 [History] Sodium Bicarbonate 650 mg PO BID PRN 10/12/18 [History] atorvaSTATin [Lipitor] 40 mg PO BEDTIME 10/12/18 [History] Past Medical History Cardiovascular History: Reports: Bypass, High Cholesterol, Hypertension, [place] Other Cardiovascular History: 1999; 2 stents and 2 balloon Respiratory History: Reports: Sleep Apnea Other Respiratory History: breathes too shallow at night, is on a CPAP Gastrointestinal History: Reports: GERD Genitourinary History: Reports: None SHRIMP PEELER History: Reports: Other (See Below) Other SHRIMP PEELER History: benign mass on left ovary Musculoskeletal History: Reports: None Neurological History: Reports: None Psychiatric History: Reports: None Endocrine/Metabolic History: Reports: Diabetes, Type II Hematologic History: Reports: None Immunologic History: Reports: None Dermatologic History: Reports: None - Infectious Disease History Infectious Disease History: Reports: Chicken Pox - Past Surgical History Other HEENT Surgeries/Procedures: shunt to right eye Social & Family History - Caffeine Use Caffeine Use: Reports: Coffee ED ROS GENERAL - Review of Systems Review Of Systems: ROS reveals no pertinent complaints other than HPI. ED EXAM, GENERAL - Physical Exam Exam: See Below Exam Limited By: No Limitations General Appearance: Alert, WD/WN, Mild Distress Eye Exam: Bilateral Eye: EOMI, Normal Inspection, PERRL Ears: Normal External Exam, Normal Canal, Hearing Grossly Normal, Normal TMs Nose: Normal Inspection, Normal Mucosa, No Blood Throat/Mouth: Normal Inspection, Normal Lips, Normal Teeth, Normal Gums, Normal Oropharynx, Normal Voice, No Airway Compromise Head: Atraumatic, Normocephalic Neck: Normal Inspection, Supple, Non-Tender, Full Range of Motion Respiratory/Chest: No Respiratory Distress, Lungs Clear, Normal Breath Sounds, No Accessory Muscle Use, Chest Non-Tender Cardiovascular: Normal Peripheral Pulses, Regular Rate, Rhythm, No Edema, No Gallop, No JVD, No Murmur, No Rub GI/Abdominal: Normal Bowel Sounds, Soft, Non-Tender, No Organomegaly, No Distention, No Abnormal Bruit, No Mass (Female) Exam: Deferred Rectal (Female) Exam: Deferred Back Exam: Normal Inspection, Full Range of Motion, NT Extremities: Normal Inspection, Normal Range of Motion, Non-Tender, Normal Capillary Refill, No Pedal Edema Neurological: Alert, Oriented, CN II-XII Intact, Normal Cognition, Normal Gait, Normal Reflexes, No Motor/Sensory Deficits Psychiatric: Normal Affect, Normal Mood Skin Exam: Warm, Dry, Intact, Normal Color, No Rash Lymphatic: No Adenopathy Course - Vital Signs Last Recorded V/S: Last Vital Signs Temp 37.3 C 11/24/18 08:47 Pulse 81 11/24/18 08:47 Resp 22 H 11/24/18 08:47 BP 137/85 11/24/18 08:47 Pulse Ox 93 L 11/24/18 08:47 - Orders/Labs/Meds Orders: Active Orders 24 hr Category Date Time Status EKG Documentation Completion [RC] URGENT Care 11/24/18 08:37 Active Chest 1V Frontal [CR] Urgent Exams 11/24/18 08:39 Taken Heparin Sodium/0.45% NaCl [Heparin 25,000 Units in 1/2 Med 11/24/18 09:18 Ordered NS 500 ML] 25,000 units in 500 ml IV ONETIME Nitroglycerin/D5W [Nitroglycerin 25 MG/D5W 250 ML] Med 11/24/18 09:30 Ordered 25 mg in 250 ml IV TITRATE Medication Orders Heparin Sodium/Sodium Chloride (Heparin 25,000 Units In 1/2 Ns 500 Ml) 25,000 units in 500 mls @ 0 mls/hr IV ONETIME ONE Stop: 11/24/18 09:19 Nitroglycerin/Dextrose (Nitroglycerin 25 Mg/D5w 250 Ml) 25 mg in 250 mls @ 3 mls/hr IV TITRATE ALBERT; Protocol Labs: Laboratory Tests 11/24/18 11/24/18 Range/Units 08:40 08:40 WBC 17.0 H (5.0-10.0) 10^3/uL RBC 3.54 L (4.2-5.4) 10^6/uL Hgb 10.4 L (12.0-16.0) g/dL Hct 31.3 L (37.0-47.0) % MCV 88.4 (80-100) fL MCH 29.4 (27.0-34.0) pg MCHC 33.2 (33.0-35.0) g/dL Plt Count 278 (150-450) 10^3/uL Neut % (Auto) 83.5 H (42.2-75.2) % Lymph % (Auto) 8.1 L (20.5-50.1) % Gregory % (Auto) 6.7 (2-8) % Eos % (Auto) 1.5 (1.0-3.0) % Baso % (Auto) 0.2 (0.0-1.0) % Sodium 137 (135-145) mmol/L Potassium 3.5 L (3.6-5.0) mmol/L Chloride 100 L (101-111) mmol/L Carbon Dioxide 25.0 (21.0-31.0) mmol/L Anion Gap 15.5 BUN 33 H (7-18) mg/dL Creatinine 1.5 H (0.6-1.3) mg/dL Est Cr Clr Drug Dosing TNP Estimated GFR (MDRD) 35 BUN/Creatinine Ratio 22.00 Glucose 111 H (74-105) mg/dL Calcium 9.2 (8.4-10.2) mg/dl Total Bilirubin 0.9 (0.2-1.0) mg/dL AST 24 (10-42) IU/L ALT 19 (10-60) IU/L Alkaline Phosphatase 144 H (42-121) IU/L Troponin I 0.10 H* (0.00-0.02) ng/ml Total Protein 8.5 H (6.7-8.2) g/dl Albumin 3.2 (3.2-5.5) g/dl Globulin 5.3 Albumin/Globulin Ratio 0.60 Meds: Medications Generic Name Dose Route Start Last Admin Trade Name Freq PRN Reason Stop Dose Admin Heparin Sodium/Sodium Chloride 25,000 units in 500 mls @ 0 mls/hr 11/24/18 09: 18 Heparin 25,000 Units In 1/2 Ns 500 Ml IV 11/24/18 09:19 ONETIME ONE 12 UNITS/KG/HR Nitroglycerin/Dextrose 25 mg in 250 mls @ 3 mls/hr 11/24/18 09:30 Nitroglycerin 25 Mg/D5w 250 Ml IV TITRATE ALBERT Protocol 5 MCG/MIN Discontinued Medications Generic Name Dose Route Start Last Admin Trade Name Freq PRN Reason Stop Dose Admin Aspirin 324 mg 11/24/18 08:46 11/24/18 08:50 Aspirin PO 11/24/18 08:47 324 mg ONETIME ONE Administration Heparin Sodium (Porcine) 4,000 units 11/24/18 09:17 Heparin Sodium IVPUSH 11/24/18 09:18 .BOLUS ONE Nitroglycerin 0.4 mg 11/24/18 09:00 Nitrostat SL 11/24/18 09:01 ONETIME ONE Departure - Departure Time of Disposition: 09:30 Disposition: DC/Tfer to Acute Hospital 02 Reason for Transfer *Q: Other Condition: Serious Clinical Impression: NSTEMI (non-ST elevated myocardial infarction) Forms: Interfacility Transfer [facility] Care Plan Goals: Discussed the history, examination, EKG and lab results with Dr. Hearn and Dr. Hein with [facility] in [place]. Dr. Hein accepted the patient for continued evaluation and further management as an inpatient at [facility]. The patient will be transported by [facility] with a heparin drip and a nitro drip running. - My Orders Last 24 Hours: My Active Orders 11/24/18 08:37 EKG Documentation Completion [RC] URGENT 11/24/18 08:39 Chest 1V Frontal [CR] Urgent 11/24/18 09:18 Heparin Sodium/0.45% NaCl [Heparin 25,000 Units in 1/2 NS 500 ML] 25,000 units in 500 ml IV ONETIME 11/24/18 09:30 Nitroglycerin/D5W [Nitroglycerin 25 MG/D5W 250 ML] 25 mg in 250 ml IV TITRATE - Assessment/Plan Last 24 Hours: My Active Orders 11/24/18 08:37 EKG Documentation Completion [RC] URGENT 11/24/18 08:39 Chest 1V Frontal [CR] Urgent 11/24/18 09:18 Heparin Sodium/0.45% NaCl [Heparin 25,000 Units in 1/2 NS 500 ML] 25,000 units in 500 ml IV ONETIME 11/24/18 09:30 Nitroglycerin/D5W [Nitroglycerin 25 MG/D5W 250 ML] 25 mg in 250 ml IV TITRATE
[2018-11-24] MEDS ORDERED: Nitroglycerin 0.4 MG Tab.SL SL ONE (09:00)
[2018-11-24 09:06] LABS: ANION GAP 15.5; CHLORIDE,CL 100 mmol/L (101-111); SODIUM,NA 137 mmol/L (135-145)
[2018-11-24] MEDS ORDERED: Heparin Sodium 5,000 Units/ML Vial IVPUSH ONE (09:17)
[2018-11-24] MEDS ORDERED: Heparin Sodium/0.45% NaCl 25,000 UNITS/500 ML BAG IV ONE (09:18)
[2018-11-24] MEDS ORDERED: Nitroglycerin/D5W 25 MG/250 ML BOTTLE IV SCH (09:30)
--- NOTE | 2018-11-24 09:32 | CR ---
Clinical history: 68-year-old female with chest pain. Interpretation: Large heart and chronic mild cephalization of vascular flow as noted on 03 May 2018 exam this patient with sternotomy wires and external quality assurance monitor leads. No new alveolar edema or dependent pleural fluid accumulation. No new lung mass, hilar lymphadenopathy or focal lobar pneumonia. No atelectasis/collapse. No pneumothorax. CONCLUSION: No acute new cardiopulmonary abnormality.
[2018-11-24 09:47] VITALS: BP 138/69
== END 2018-11-24 10:20 ==
LOC: DL.ED 08:33
DX: I21.4 Non-ST elevation (NSTEMI) myocardial infarction (principal); I10 Essential (primary) hypertension; E11.9 Type 2 diabetes mellitus without complications; Z88.6 Allergy status to analgesic agent; Z79.899 Other long term (current) drug therapy; Z79.4 Long term (current) use of insulin; Z95.5 Presence of coronary angioplasty implant and graft
CPT/HCPCS: 36415; 71045; 80053; 84484; 85025; 93005; 96365; 96368; 96376; 99285; A9270; J1644; J3490; 99284

== ENCOUNTER 2019-11-24 04:05 | Emergency (ER) | payer MEDICARE, OTHER ==
[2019-11-24 04:29] VITALS: BP 122/70; PULSE 102
[2019-11-24] MEDS ORDERED: Morphine 2 MG/ML Syringe IVPUSH ONE ×2 (04:44→05:29)
[2019-11-24] MEDS ORDERED: Ondansetron 4 MG/2 ML SDV IVPUSH ONE (04:44)
--- NOTE | 2019-11-24 04:50 | EDM.PDOC ---
ED HPI GENERAL MEDICAL PROBLEM - General Chief Complaint: Chest Pain Stated Complaint: [place] [employer] [place] Time Seen by Provider: 11/24/19 04:45 Source of Information: Reports: Patient History Limitations: Reports: No Limitations - History of Present Illness INITIAL COMMENTS - FREE TEXT/NARRATIVE: onset mid chest pain going up her neck about 10pm last night while getting ready for bed. took total 2 NTG prior midnight, got better and fell asleep then pain woke her again and took 2 more but only got slight relief, so called EMS. states had 2x stent last year for same problem. 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 Mid-Sternal Chest Pain Score (Numeric/FACES): 3 - Related Data Allergies Allergy/AdvReac Type Severity Reaction Status Date / Time aspirin AdvReac Stomach Verified 10/12/18 17:06 Upset Home Meds: Home Meds Bimatoprost [LUMIGAN 0.01% Ophth Soln] 2.5 ml .XX QPM 10/12/18 [History] Brimonidine [Alphagan 0.2% Ophth Soln] 5 ml .XX TID 10/12/18 [History] Bumetanide 2 mg PO DAILY 10/12/18 [History] Cholecalciferol (Vitamin D3) [Vitamin D3] 1,000 unit PO DAILY 10/12/18 [History] Cyanocobalamin (Vitamin B-12) [Cyanocobalamin Injection] 1 ml SQ ASDIRECTED 04/22 [History] Dorzolamide/Timolol/Pf [Cosopt Pf Eye Drops] 1 each OP BID 10/12/18 [History] Famotidine [Pepcid] 20 mg PO BID 10/12/18 [History] Insulin Aspart [NovoLOG] 20 unit SQ TID 10/12/18 [History] Insulin Detemir [Levemir] 22 unit SUBCUT ACBREAKFAST 10/12/18 [History] Latanoprost/Pf [Latanoprost 0.005% Eye Drop] 7.5 ml OP DAILY 10/12/18 [History] Multivitamin with Minerals [Multiple Vitamin] 1 tab PO DAILY 10/12/18 [History] Nitroglycerin 0.4 mg SL ASDIRECTED 10/12/18 [History] Sodium Bicarbonate 650 mg PO BID PRN 10/12/18 [History] atorvaSTATin [Lipitor] 40 mg PO BEDTIME 10/12/18 [History] Apixaban [Eliquis] 5 mg PO DAILY 11/24/19 [History] Prasugrel HCl [Effient] 10 mg PO DAILY 11/24/19 [History] Spironolactone [Aldactone] 25 mg PO BID 11/24/19 [History] Past Medical History HEENT History: Reports: Glaucoma, Impaired Vision Cardiovascular History: Reports: Bypass, Heart Failure, High Cholesterol, Hypertension, [place], Stents Other Cardiovascular History: 2000; 2 stents and 2 balloon Respiratory History: Reports: Sleep Apnea Other Respiratory History: breathes too shallow at night, is on a CPAP Gastrointestinal History: Reports: GERD Genitourinary History: Reports: None SHOVE UP History: Reports: Other (See Below) Other SHOVE UP History: benign mass on left ovary. ovary removal 2013 Musculoskeletal History: Reports: Fracture Other Musculoskeletal History: Fracture of lumbar spine 2014 Neurological History: Reports: None Psychiatric History: Reports: None Endocrine/Metabolic History: Reports: Diabetes, Type II Hematologic History: Reports: None, Anemia Immunologic History: Reports: None Dermatologic History: Reports: None - Infectious Disease History Infectious Disease History: Reports: Chicken Pox - Past Surgical History Other HEENT Surgeries/Procedures: shunt to right eye Cardiovascular Surgical History: Reports: Carotid Endarterectomy, Carotid Stents , Coronary Artery Stent Other Cardiovascular Surgeries/Procedures: Endarterectomy 2011 Social & Family History - Family History Family Medical History: Noncontributory - Tobacco Use Smoking Status *Q: Unknown Ever Smoked Second Hand Smoke Exposure: No - Caffeine Use Caffeine Use: Reports: Coffee - Recreational Drug Use Recreational Drug Use: No ED ROS GENERAL - Review of Systems Review Of Systems: Comprehensive ROS is negative, except as noted in HPI. ED EXAM, GENERAL - Physical Exam Exam: See Below Exam Limited By: No Limitations General Appearance: Alert, WD/WN, Mild Distress, Other (discomfort) Ears: Hearing Grossly Normal Throat/Mouth: Normal Voice, No Airway Compromise Head: Atraumatic Neck: Non-Tender, Full Range of Motion Respiratory/Chest: No Respiratory Distress Cardiovascular: No Murmur, Irregularly Irregular GI/Abdominal: Soft, Non-Tender Neurological: Alert, Oriented, Normal Cognition, No Motor/Sensory Deficits Psychiatric: Flat Affect Skin Exam: Warm, Dry, Normal Color Lymphatic: No Adenopathy Course - Vital Signs Last Recorded V/S: Last Vital Signs Temp 36.8 C 05/22/20 04:27 Pulse 102 H 11/24/19 04:27 Resp 18 11/24/19 04:27 BP 122/70 11/24/19 04:27 Pulse Ox 95 11/24/19 04:27 - Orders/Labs/Meds Orders: Active Orders 24 hr Category Date Time Status EKG 12 Lead [EKG Documentation Completion] [RC] STAT Care 11/24/19 04:06 Active CORONAVIRUS COVID-19 RAPID PCR [MOLEC] Stat Lab 11/24/19 05:13 Received Morphine Med 11/24/19 05:29 Once 2 mg IVPUSH ONETIME ONE Labs: Laboratory Tests 11/24/19 11/24/19 Range/Units 04:18 04:18 WBC 17.0 H (5.0-10.0) 10^3/uL RBC 3.19 L (4.2-5.4) 10^6/uL Hgb 9.7 L (12.0-16.0) g/dL Hct 28.7 L (37.0-47.0) % MCV 90.0 (80-100) fL MCH 30.4 (27.0-34.0) pg MCHC 33.8 (33.0-35.0) g/dL Plt Count 289 (150-450) 10^3/uL Neut % (Auto) 86.9 H (42.2-75.2) % Lymph % (Auto) 7.1 L (20.5-50.1) % [place] % (Auto) 5.0 (2-8) % Eos % (Auto) 0.8 L (1.0-3.0) % Baso % (Auto) 0.2 (0.0-1.0) % Sodium 137 (136-145) mmol/L Potassium 4.2 (3.5-5.1) mmol/L Chloride 99 (98-107) mmol/L Carbon Dioxide 28 (21-32) mmol/L Anion Gap 14.2 H (7-13) mEq/L BUN 62 H (7-18) mg/dL Creatinine 2.50 H (0.55-1.02) mg/dL Est Cr Clr Drug Dosing 18.86 mL/min Estimated GFR (MDRD) 19 BUN/Creatinine Ratio 24.8 (No establ ref range) Glucose 178 H (74-99) mg/dL Calcium 8.9 (8.5-10.1) mg/dL Total Bilirubin 0.4 (0.2-1.0) mg/dL AST 43 H (15-37) U/L ALT 62 H (14-59) U/L Alkaline Phosphatase 216 H (46-116) U/L Troponin I 0.087 H* (0.000-0.056) ng/mL Total Protein 8.6 H (6.4-8.2) g/dL Albumin 3.3 L (3.4-5.0) g/dL Globulin 5.3 Albumin/Globulin Ratio 0.62 Meds: Medications Discontinued Medications Generic Name Dose Route Start Last Admin Trade Name Freq PRN Reason Stop Dose Admin Aspirin 324 mg 11/24/19 05:23 Aspirin PO 11/24/19 05:24 ONETIME ONE Heparin Sodium (Porcine) 4,000 units 11/24/19 05:24 Heparin Sodium IVPUSH 11/24/19 05:25 .BOLUS ONE Morphine Sulfate 1 mg 11/24/19 04:44 11/24/19 04:57 Morphine IVPUSH 11/24/19 04:45 1 mg ONETIME ONE Administration Ondansetron HCl 4 mg 11/24/19 04:44 11/24/19 04:56 Zofran IVPUSH 11/24/19 04:45 4 mg ONETIME ONE Administration - Re-Assessments/Exams Free Text/Narrative Re-Assessment/Exam: 11/24/19 05:30 case discussed with Lydia Colon & Sue @ who kindly accepted pt. Departure - Departure Time of Disposition: 05:31 Disposition: DC/Tfer to Acute Hospital 02 Reason for Transfer *Q: Other Condition: Good Clinical Impression: Myocardial infarction acute Qualifiers: Myocardial infarction type: non-ST elevation myocardial infarction Qualified Code(s): I21.4 - Non-ST elevation (NSTEMI) myocardial infarction Forms: Interfacility Transfer EMTAL[facility] Sepsis Event Note - Evaluation Sepsis Screening Result: No Definite Risk - Focused Exam Vital Signs: Vital Signs Temp Pulse Resp BP Pulse Ox 11/24/19 04:27 36.8 C 102 H 18 122/70 95 Date Exam was Performed: 11/24/19 Time Exam was Performed: 05:30 - My Orders Last 24 Hours: My Active Orders 11/24/19 04:06 EKG 12 Lead [EKG Documentation Completion] [RC] STAT 11/24/19 05:13 CORONAVIRUS COVID-19 RAPID PCR [MOLEC] Stat 11/24/19 05:29 Morphine 2 mg IVPUSH ONETIME ONE - Assessment/Plan Last 24 Hours: My Active Orders 11/24/19 04:06 EKG 12 Lead [EKG Documentation Completion] [RC] STAT 11/24/19 05:13 CORONAVIRUS COVID-19 RAPID PCR [MOLEC] Stat 11/24/19 05:29 Morphine 2 mg IVPUSH ONETIME ONE
[2019-11-24 04:51] LABS: ANION GAP 14.2 mEq/L (7-13)
[2019-11-24] MEDS ORDERED: Aspirin 81 MG Tab.Chew PO ONE (05:23)
[2019-11-24] MEDS ORDERED: Heparin Sodium 5,000 Units/ML Vial IVPUSH ONE (05:24)
== END 2019-11-24 06:39 ==
LOC: DL.ED 04:05
DX: I21.4 Non-ST elevation (NSTEMI) myocardial infarction (principal); I11.0 Hypertensive heart disease with heart failure; I50.9 Heart failure, unspecified; E78.00 Pure hypercholesterolemia, unspecified; I25.2 Old myocardial infarction; K21.9 Gastro-esophageal reflux disease without esophagitis; E11.9 Type 2 diabetes mellitus without complications; Z79.4 Long term (current) use of insulin; Z88.6 Allergy status to analgesic agent; Z79.899 Other long term (current) drug therapy; Z95.5 Presence of coronary angioplasty implant and graft; Z79.01 Long term (current) use of anticoagulants
CPT/HCPCS: 36415; 71045; 80053; 83605; 83880; 84484; 85025; 93005; 96374; 96375; 96376; 99285-25; A9270-GY; J1644; J2270; J2405; U0002

== ENCOUNTER 2020-06-20 20:32 | Emergency (ER) | payer MEDICARE, OTHER ==
[2020-06-20] MEDS ORDERED: Calcium Chloride 10% 1 GM/10 ML Syringe IV ONE (20:33)
[2020-06-20] MEDS ORDERED: EPINEPHrine 1:10,000 1 MG/10 ML Syringe IV ONE (20:33)
--- NOTE | 2020-06-20 20:56 | EDM.PDOC ---
ED HPI GENERAL MEDICAL PROBLEM - General Stated Complaint: CODE BLUE Time Seen by Provider: 06/20/20 20:51 Source of Information: Reports: EMS History Limitations: Reports: Other (CPR) - History of Present Illness INITIAL COMMENTS - FREE TEXT/NARRATIVE: EMS state arrived at scene of pt full arrest with no VS. family state pt just had recent heart surgery few days ago but unable to recall where. pt arrived full arrest with CPR and s/p 6x epi and 3x atrop x1 bicarb. CPR continued and pt showed return of rhythm and pulse 80s post IV epi but will paxton to 30s and require CPR. Both [facility] & [facility] have no record of pt being there for heart surgery past few days per family member. still waiting family to arrive for further HPI. - Related Data Allergies Allergy/AdvReac Type Severity Reaction Status Date / Time aspirin AdvReac Stomach Verified 10/12/18 17:06 Upset Home Meds: Home Meds Bimatoprost [LUMIGAN 0.01% Ophth Soln] 2.5 ml .XX QPM 10/12/18 [History] Brimonidine [Alphagan 0.2% Ophth Soln] 5 ml .XX TID 10/12/18 [History] Bumetanide 2 mg PO DAILY 10/12/18 [History] Cholecalciferol (Vitamin D3) [Vitamin D3] 1,000 unit PO DAILY 10/12/18 [History] Cyanocobalamin (Vitamin B-12) [Cyanocobalamin Injection] 1 ml SQ ASDIRECTED 10/12/18 [History] Dorzolamide/Timolol/Pf [Cosopt Pf Eye Drops] 1 each OP BID 10/12/18 [History] Famotidine [Pepcid] 20 mg PO BID 10/12/18 [History] Insulin Aspart [NovoLOG] 20 unit SQ TID 10/12/18 [History] Insulin Detemir [Levemir] 22 unit SUBCUT ACBREAKFAST 10/12/18 [History] Latanoprost/Pf [Latanoprost 0.005% Eye Drop] 7.5 ml OP DAILY 10/12/18 [History] Multivitamin with Minerals [Multiple Vitamin] 1 tab PO DAILY 10/12/18 [History] Nitroglycerin 0.4 mg SL ASDIRECTED 10/12/18 [History] Sodium Bicarbonate 650 mg PO BID PRN 10/12/18 [History] atorvaSTATin [Lipitor] 40 mg PO BEDTIME 10/12/18 [History] Apixaban [Eliquis] 5 mg PO DAILY 11/24/19 [History] Prasugrel HCl [Effient] 10 mg PO DAILY 11/24/19 [History] Spironolactone [Aldactone] 25 mg PO BID 11/24/19 [History] Past Medical History HEENT History: Reports: Glaucoma, Impaired Vision Cardiovascular History: Reports: Bypass, Heart Failure, High Cholesterol, Hypertension, [place], Stents Other Cardiovascular History: 1999; 2 stents and 2 balloon Respiratory History: Reports: Sleep Apnea Other Respiratory History: breathes too shallow at night, is on a CPAP Gastrointestinal History: Reports: GERD Genitourinary History: Reports: None 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 ovary removal 2013 Musculoskeletal History: Reports: Fracture Other Musculoskeletal History: Fracture of lumbar spine 2014 Neurological History: Reports: None Psychiatric History: Reports: None Endocrine/Metabolic History: Reports: Diabetes, Type II Hematologic History: Reports: None, Anemia Immunologic History: Reports: None Dermatologic History: Reports: None - Infectious Disease History Infectious Disease History: Reports: Chicken Pox - Past Surgical History Other HEENT Surgeries/Procedures: shunt to right eye Cardiovascular Surgical History: Reports: Carotid Endarterectomy, Carotid Stents, Coronary Artery Stent Other Cardiovascular Surgeries/Procedures: Endarterectomy 2011 Social & Family History - Family History Family Medical History: No Pertinent Family History - Caffeine Use Caffeine Use: Reports: Coffee ED ROS GENERAL - Review of Systems Review Of Systems: Comprehensive ROS is negative, except as noted in HPI. ED EXAM, CPR - Physical Exam Exam: See Below Limited By: Other (CPR) General Appearance: Other (CPR) Eye Exam: Bilateral Eye: PERRL (fixed dilated 7-8mm) Head: Atraumatic Respiratory Chest: Other (vent assist) Cardiovascular: CPR In Progress Course - Orders/Labs/Meds Orders: Active Orders 24 hr Category Date Time Status CBC WITH AUTO DIFF [HEME] Stat Lab 06/20/20 20:49 Ordered COMPREHENSIVE METABOLIC PN,CMP [CHEM] Stat Lab 06/20/20 20:49 Ordered TROPONIN I [CHEM] Stat Lab 06/20/20 20:49 Ordered - Re-Assessments/Exams Free Text/Narrative Re-Assessment/Exam: 06/20/20 21:18 CPR d/c on no resumption of spont activity. family informed. Departure - Departure Time of Disposition: 21:19 Disposition: 20 Clinical Impression: Cardiac arrest - Discharge Information Forms: ED Department Discharge - My Orders Last 24 Hours: My Active Orders 06/20/20 20:49 CBC WITH AUTO DIFF [HEME] Stat COMPREHENSIVE METABOLIC PN,CMP [CHEM] Stat TROPONIN I [CHEM] Stat - Assessment/Plan Last 24 Hours: My Active Orders 06/20/20 20:49 CBC WITH AUTO DIFF [HEME] Stat COMPREHENSIVE METABOLIC PN,CMP [CHEM] Stat TROPONIN I [CHEM] Stat
--- NOTE | 2020-06-20 20:59 | CR ---
PROCEDURE INFORMATION: Exam: XR Chest, 1 View Exam date and time: 06/20/2020 8:52 PM Age: 69 years old Clinical indication: Other: Code blue; Additional info: Cpr in progress TECHNIQUE: Imaging protocol: XR of the chest Views: 1 view. COMPARISON: CR Chest 1V Frontal 11/24/2019 6:28 AM FINDINGS: Tubes, catheters and devices: Large-bore dual-lumen central venous catheter with tip deep in right atrium. Electro stimulator device projecting over the left side of the chest. Lungs: No suspicious pulmonary nodules or areas of lung consolidation. Pleural space: Costophrenic angles are sharp. No pneumothorax. Heart/Mediastinum: There has been previous cardiac bypass. The cardiac silhouette is mildly enlarged. Vasculature: There is intimal calcification of the aortic knob. Bones/joints: Age appropriate. IMPRESSION: 1. No acute pulmonary findings. 2. The cardiac silhouette is mildly enlarged. 3. No significant change.
[2020-06-20 21:14] LABS: ANION GAP 20.1 mEq/L (7-13)
== END 2020-06-21 01:09 | disposition expired ==
LOC: DL.ED 20:32
DX: I46.9 Cardiac arrest, cause unspecified (principal); E78.00 Pure hypercholesterolemia, unspecified; I11.0 Hypertensive heart disease with heart failure; I50.9 Heart failure, unspecified; I25.2 Old myocardial infarction; E11.9 Type 2 diabetes mellitus without complications; K21.9 Gastro-esophageal reflux disease without esophagitis; Z79.4 Long term (current) use of insulin; Z79.01 Long term (current) use of anticoagulants; Z79.899 Other long term (current) drug therapy; Z88.6 Allergy status to analgesic agent
CPT/HCPCS: 36415; 71045; 80053; 84484; 85025; 92950; 99284; 99285-25; J0171